=== PATIENT | male | born 1990 | race Caucasian/White ===

== ENCOUNTER → 2020-08-19 | Day surgery (SDC) | payer OTHER ==
[~2020-08-19] MED LIST: NORCO 5-325 TA1 EACH PO; PERCOCET 5-3251 EACH PO
[2020-08-19 10:41] LABS: HGB 16.1 g/dl (13.2-18.0); MCH 30.3 pg (25.0-31.0); MCHC 34.3 g/dL (32.0-36.0); MCV 88.5 fL (78.0-100.0); MPV 9.8 fL (6.0-9.5); RBC 5.31 M/uL (4.70-6.00); RDW 12.7 % (11.5-14.0); WBC 10.4 K/uL (4.0-10.5)
[2020-08-19 11:03] LABS: ALBUMIN 3.8 g/dL (3.4-5.0); BILIRUBIN - TOTAL 0.3 mg/dL (0.2-1.0); BUN/CREAT RATIO (CALC) 20.9 RATIO; CREATININE 0.91 mg/dL (0.67-1.17); GLOBULIN (CALCULATION) 3.4 g/dL; POTASSIUM 3.9 mmol/L (3.5-5.1); TOTAL PROTEIN 7.2 g/dL (6.4-8.2)
== END | disposition home or self-care (01) ==
LOC: FAS 09:55
PROVIDERS: Orthopaedic Surgery
DX: M77.12 Lateral epicondylitis, left elbow (principal); S56.512A Strain of other extensor muscle, fascia and tendon at forearm level, left arm, initial encounter
CPT/HCPCS: 36415; 80053; J2250; J3010; J7120